=== PATIENT | male | born 1990 | race Two or more races ===

== ENCOUNTER 2021-07-26 00:48 | Emergency (ER) | payer SELFPAY ==
[~2021-07-26] VITALS: Ht 167.6 cm; Wt 59.0 kg
[2021-07-26] MEDS ORDERED: NALOXONE HCL 0.4 MG/ML AMPUL IV ONE (01:00)
--- NOTE | 2021-07-26 01:03 | NUR ---
Security at bedside to check patient for weapons and contraband.
--- NOTE | 2021-07-26 01:05 | NUR ---
PATIENT IS ORIENTED TO NAME ONLY , NAUSEA IS PRESENT
[2021-07-26] MEDS ORDERED: NALOXONE HCL 0.4 MG/ML AMPUL ONE (01:09)
[2021-07-26] MEDS ORDERED: ONDANSETRON 4 MG/2 ML VIAL ONE (01:12)
[2021-07-26] MEDS ORDERED: ONDANSETRON 4 MG/2 ML VIAL IV ONE (01:15)
[2021-07-26 01:21] LABS: HEMATOCRIT 40.5 % (36.7-47.1); MEAN CORPUSCULAR HEMOGLOBIN 32.1 uug (23.8-33.4); MEAN CORPUSCULAR VOLUME 94.3 fL (73.0-96.2); PLATELET COUNT (AUTO) 252 K/uL (152-348)
[2021-07-26 01:24] LABS: CARBON DIOXIDE 30 mmol/L (21-32); CHLORIDE 104 mmol/L (98-107); CREATININE 1.2 mg/dL (0.6-1.3); GLUCOSE 197 mg/dL (74-106); POTASSIUM 3.9 mmol/L (3.5-5.1); UREA NITROGEN, BLOOD 21 mg/dL (7-18)
[2021-07-26 01:27] LABS: ETHANOL < 3 MG/DL (0-0)
[2021-07-26 01:30] LABS: ALANINE AMINOTRANSFERASE 81 U/L (16-63); ALKALINE PHOSPHATASE 95 U/L (50-136); BILIRUBIN,TOTAL 0.2 mg/dL (0.2-1.0); TOTAL PROTEIN, SERUM 6.5 g/dL (6.4-8.2)
[2021-07-26 01:41] LABS: ASPARTATE AMINOTRANSFERASE 107 U/L (15-37)
--- NOTE | 2021-07-26 02:16 | NUR ---
arousable to light touch
--- NOTE | 2021-07-26 02:40 | NUR ---
arousable to light touch , no nausea and vomiting noted
--- NOTE | 2021-07-26 04:17 | NUR ---
AROUSABLE TO LIGHT TOUCH , NO NAUSEA OR VOMITING NOTED
[2021-07-26] MEDS ORDERED: NALO4SPR NS (06:02)
--- NOTE | 2021-07-26 06:17 | NUR ---
patient is more awake , responsive , food offered and accepted , packet for checklist for homeless given and explained , prescription given , explained and verbalizes understanding
[2021-07-26 06:41] VITALS: BP 115/69
--- NOTE | 2021-07-26 06:42 | NUR ---
food and clothes given , packet for homeless given and explained , escorted by nurse and security ,patient stated he might go over to his friends house after
--- NOTE | 2021-07-26 06:43 | NUR ---
all belongings sent with the patient
--- NOTE | 2021-07-26 06:49 | NUR ---
no nausea and vomiting noted , iv removed and pressure applied
[2021-07-26 08:23] LABS: *AMPHETAMINE, URINE POSITIVE (NEGATIVE); *CANNABINOID, URINE POSITIVE (NEGATIVE); *COCCAINE, URINE NEGATIVE (NEGATIVE); *OPIATE, URINE NEGATIVE (NEGATIVE); *PHENCYCLIDINE SCREEN,URINE NEGATIVE (NEGATIVE)
== END 2021-07-26 07:13 | disposition home or self-care (01) ==
LOC: EDBD 00:50 → ER 00:50
DX: T40.2X1A Poisoning by other opioids, accidental (unintentional), initial encounter (principal); R40.4 Transient alteration of awareness; Y92.480 Sidewalk as the place of occurrence of the external cause; Z59.02 Unsheltered homelessness; Z82.49 Family history of ischemic heart disease and other diseases of the circulatory system
CPT/HCPCS: 36415; 71045; 80053; 80307; 80320; 85025; 96374; 96375; 99284; J2310; J2405; A4663; G0480